=== PATIENT | female | born 1985 | race Caucasian/White ===

== ENCOUNTER 2018-03-10 23:56 | Outpatient (CLI) | payer BC ==
[~2018-03-10] VITALS: Ht 162.6 cm; Wt 90.9 kg
[~2018-03-10 23:56] MED LIST: FLEXERIL 1010 MG/TAB PO; METHERGINE0.2 MG/TAB PO; MOTRIN 600600 MG/TAB PO; NORCO 325 MG-51 TAB PO; PERCOCET 325 MG1 TA2 PO; PRENATAL1 TA1 PO
[2018-03-11 00:13] VITALS: BP 118/60; PULSE 107; TEMP 97.7
[2018-03-12] MEDS ORDERED: IBU800 M1 PO (08:43)
[2018-03-12] MEDS ORDERED: PERCOCET 325 MG1 TA2 PO (08:43)
== END 2018-03-11 02:22 | disposition home or self-care (01) ==
LOC: LDRO 23:56
DX: O62.9 Abnormality of forces of labor, unspecified (principal); Z3A.40 40 weeks gestation of pregnancy

== ENCOUNTER 2018-03-11 10:22 | Inpatient (IN) | payer BC ==
[~2018-03-11] VITALS: Ht 165.1 cm; Wt 88.6 kg
[2018-03-11] VITALS (13 sets, daily range): BP systolic 113–141; BP diastolic 54–80; PULSE 47–109; TEMP 97.4–97.8
[2018-03-11 11:19] LABS: BASO % 0.3 % (0.0-2.0); EOS # 0.1 (0.0-0.7); EOS % 0.4 % (0-4.0); GRAN # 11.6 (1.4-6.5); GRAN % 83.9 % (42.2-75.2); HEMOGLOBIN 11.7 g/dl (12.5-16.0); LYMPH # 1.3 (1.2-3.4); LYMPH % 9.6 % (20.0-51.0); MEAN CELL VOLUME 90 fl (80.0-100.0); MEAN CORPUSCULAR HEMOGLOBIN 32 pg (27.0-31.0); MEAN CORPUSCULAR HGB CONC 35 g/dl (33.0-37.0); MEAN PLATELET VOLUME 13.3 fl (7.4-10.4); MONO # 0.7 (0.1-0.6); MONO % 5.4 % (1.7-9.3); PLATELET COUNT 149 K/mm3 (130-400); RED BLOOD COUNT 3.72 M/mm3 (4.10-5.30); REDCELL DISTRIBUTION WIDTH-CV 13.9 % (11.5-14.5)
[2018-03-11 11:20] LABS: HEMATOCRIT 33.3 % (37.0-47.0)
[2018-03-12 03:30] VITALS: BP 118/62; PULSE 104; TEMP 99.8
[2018-03-12 05:54] VITALS: TEMP 98.1
[2018-03-12 06:55] VITALS: BP 102/64; PULSE 101; TEMP 97.9
[2018-03-12] MEDS ORDERED: IBU800 M1 PO (08:43)
[2018-03-12] MEDS ORDERED: PERCOCET 325 MG1 TA2 PO (08:43)
[2018-03-12 16:32] VITALS: BP 122/68; PULSE 76; TEMP 98.1
[2018-03-12 18:30] VITALS: BP 110/61; PULSE 107; TEMP 99
[2018-03-12 22:00] VITALS: BP 111/64; PULSE 94; TEMP 98.4
[2018-03-13 08:50] VITALS: BP 111/71; PULSE 91; TEMP 98
== END 2018-03-13 10:20 | disposition home or self-care (01) | DRG 775 ==
LOC: LDR 10:22 → OB 14:35 → LDR 03-14 13:36
PROVIDERS: Student in an Organized Health Care Education/Training Program
PROC: 10E0XZZ Delivery of Products of Conception, External Approach (ICD-10-PCS; principal; 2018-03-11)
PROC: 0KQM0ZZ Repair Perineum Muscle, Open Approach (ICD-10-PCS; 2018-03-11)
DX: O70.1 Second degree perineal laceration during delivery (principal); Z37.0 Single live birth; Z3A.40 40 weeks gestation of pregnancy
CPT/HCPCS: J2590; J7120

== ENCOUNTER → 2020-09-07 | Outpatient (CLI) | payer BC ==
[~2020-09-07] MED LIST changes: +IBU800 M1 PO
== END ==
LOC: MC.RAD 09:15
DX: Z12.31 Encounter for screening mammogram for malignant neoplasm of breast (principal)

== ENCOUNTER → 2021-11-25 | Outpatient (CLI) | payer BC | LOC: MC.RAD 13:00 | DX: Z12.31 Encounter for screening mammogram for malignant neoplasm of breast (principal) ==

== ENCOUNTER → 2024-04-01 | Outpatient (CLI) | payer BC | LOC: MC.RAD 10:54 | DX: Z12.31 Encounter for screening mammogram for malignant neoplasm of breast (principal); Z12.4 Encounter for screening for malignant neoplasm of cervix ==